=== PATIENT | female | born 2005 | race Caucasian/White ===

== ENCOUNTER 2024-05-21 17:53 | Emergency (ER) | payer BC, SELFPAY ==
[2024-05-21 17:56] VITALS: BP 131/84
[2024-05-21 18:23] LABS: % Basophils 0.2 % (0-2); % Eosinophils 0.7 % (0-6); % Immature Granulocytes 0.2 % (0-0.5); % Lymphocytes 17.4 % (20.5-51.1); % Monocytes 5.8 % (1.7-9.3); % Neutrophils 75.7 % (42.2-75.2); Absolute Eosinophils 0.1 10^3/uL (0-0.7); Absolute Lymphocytes 1.7 10^3/uL (1.2-3.4); Absolute Monocytes 0.6 10^3/uL (0.1-0.6); Absolute Neutrophils 7.6 10^3/uL (1.4-6.5); Hematocrit 37.9 % (37.0-47.0); Hemoglobin 13.3 g/dL (12.0-16.0); Mean Corp Hgb Conc. 35.1 g/dL (33.0-37.0); Mean Corpuscular Hgb 30.9 pg (27.0-31.0); Mean Corpuscular Volume 88.1 fL (81.0-99.0); Mean Platelet Volume 9.4 fL (7.4-10.4); Nucleated Red Blood Cells % 0 %; Platelet Count 316 10^3/uL (130-400); Red Cell Dist. Width 11.9 % (11.5-14.5)
[2024-05-21 18:32] LABS: HCG, Serum Qualitative Screen Negative
[2024-05-21 18:36] LABS: ALT (SGPT) 37 U/L (0-35); AST (SGOT) 31 U/L (14-36); Albumin 4.7 g/dl (3.5-5.0); Alkaline Phosphatase 81 U/L (38-126); Blood Urea Nitrogen 21 mg/dl (7-17); Calcium 9.9 mg/dl (8.4-10.2); Carbon Dioxide 25 mmol/L (22-30); Chloride 106 mmol/L (98-107); Glucose 83 mg/dl (70-99); Potassium 4.4 mmol/L (3.5-5.1); Sodium 141 mmol/L (135-145); Total Bilirubin 0.7 mg/dl (0.2-1.3); Total Protein 7.7 g/dl (6.3-8.2); eGFR > 60.00
[2024-05-21 18:37] LABS: Lipase 60 U/L (23-300)
--- NOTE | 2024-05-21 19:02 | ED.GENMED ---
History of Present Illness
General
Chief Complaint: Abdominal Pain
Source: patient
Exam Limitations: none
Time Seen by Provider: 05/21/24 19:00
Nursing documentation reviewed up to this point in time: agreed with
History of Present Illness
History of Present Illness:
This is a 18-year-old female with past medical history of depression, lactose intolerance who presents emergency department today with concerns of upper abdominal pain. Patient reports that this started around 3 hours prior to arrival to emergency
department. Patient states that this started after she started to eat pizza and started to feel really intense upper abdominal cramping. Patient reports that her mom gave her dose of naproxen and her symptoms started to resolve. Patient states
that she is lactose intolerant and did not take any lactose medications prior to eating pizza. Patient denies any diarrhea. Patient has a nausea vomiting. Patient has never had pain similar to this before.
Review of Systems
Review of Systems
All Other Systems: ROS reviewed and negative except as documented in HPI and ROS
Phy Exam
Physical Exam
Physical Exam:
General: Patient is well appearing and in no acute distress; non-toxic
Skin: Warm and dry, no rashes or lesions
Head: Normocephalic, atraumatic
Eyes: Sclera non-icteric. EOMs intact.
Cardiac: Regular rate and rhythm, no murmurs
Peripheral Vascular: No lower extremity swelling or edema
Pulm: Normal respiratory effort, no wheezes, rales, rhonchi
Abdomen: No abdominal tenderness to palpation, no palpable abdominal masses
Neuro: CN II-XII intact, no focal neurologic deficits.
Psychiatric: Appropriate mood and affect.
Course
Orders/Labs/Results
Orders:
Orders
05/21/24 17:59
Test Result ONCE
05/21/24 18:11
Complete Blood Count/With Diff Urgent
Comprehensive Metabolic Panel Urgent
HCG, Serum Qualitative Screen Urgent
Lipase Urgent
05/21/24 19:10
US Abdomen Complete/Upper Urgent
Comment:
Reason For Exam: right upper quadrant pain
05/21/24 20:07
Urinalysis Reflex To Culture Urgent
Date Specimen was Collected: 05/21/24
Time Specimen was Collected: 19:55
Urine Microscopic Reflex Cult Urgent
Urine Culture Urgent
MATTHEW Source: U
Specimen Description:
Date Specimen was Collected: 05/21/24
Time Specimen was Collected: 19:55
Abnormal Lab Results
05/21/24 05/21/24
18:11 20:07
Absolute Neuts (auto) 7.6 H 10^3/uL
(1.4-6.5)
Neutrophils % 75.7 H %
(42.2-75.2)
Lymphocytes % 17.4 L %
(20.5-51.1)
BUN 21 H mg/dl
(7-17)
ALT 37 H U/L
(0-35)
Ur Occult Blood Reflex 1+ A
(Negative)
Leukocyte Esterase Rfl 1+ A
(Negative)
Urine WBC (Reflex) 11-15 A /HPF
(0-5)
Urine Bacteria (Reflex) Moderate A
(Negative)
Urine Albumin (Reflex) 1+ A
(Neg - Trace)
05/21/24 18:11
05/21/24 18:11
Vital Signs
Initial and Last Documented VS:
Initial Vital Signs
Temp Pulse Resp BP Pulse Ox
98.6 F 104 18 131/84 99
05/21/24 17:56 05/21/24 17:56 05/21/24 17:56 05/21/24 17:56 05/21/24 17:56
Last Documented Vital Signs
Temp Pulse Resp BP Pulse Ox
98.6 F 89 18 113/70 98
05/21/24 17:56 05/21/24 21:48 05/21/24 21:48 05/21/24 21:48 05/21/24 21:48
MDM/Problems Addressed
Differential Diagnosis Includes:
Differentials include cholecystitis, biliary colic, gastroenteritis, gastritis, lactose intolerance
MDM/Problems Addressed:
18-year-old female presents emergency department today with 30 minutes of upper abdominal pain following eating some pizza. Did resolve with naproxen. Does have a history of lactose intolerance. Denies any pelvic pain or dysuria. On physical
exam she is well-appearing in no acute distress she has no abdominal tenderness to palpation. CBC and CMP are unremarkable. Did obtain upper abdominal ultrasound which demonstrates multiple gallstones. Patient did have similar pain in past and
was told she has gallbladder sludge. No evidence of cholecystitis at this time however did discuss with patient that she should likely be evaluated by general surgery and cholecystectomy may be considered in the future. Lactose intolerance may
also have been a component of this episode today. Patient stable for discharge.
Chronic conditions affecting care:
n/a
*Pulse Oximetry
Patient hypoxic: no
*Critical Care Note
Total Time (30-74mins, 75-104mins- exclusive of procedures): Not Applicable
ED Attending Note
-
Portions of this chart may have been created with voice recognition software.� Occasional wrong word or��sound alike� substitutions may have occurred due to the inherent limitations of voice recognition software.
Discharge Plan
Departure
Patient Disposition: Home (Routine Discharge)
Date of Disposition: 05/21/24
Time of Disposition: 21:36
Patient with high blood pressure during this ER visit?: Yes
Condition: Good
Discharge Problem:
Cholelithiasis
Instructions: Gallstones (DC), Abdominal Pain, BLOOD PRESSURE
Referrals:
Gabriele Workman MD [Active] - Call in 1-3 days for appt
Nidhi Levine CRNP [Family Provider] -
Activity Restrictions/Additional Instructions:
Please pay attention to your symptoms and what foods seem to exacerbate them.
PLEASE RETURN EMERGENCY DEPARTMENT SHOULD YOU DEVELOP ANY ACUTE WORSENING OR SYMPTOMS, INTRACTABLE NAUSEA OR VOMITING, CHEST PAIN, SHORTNESS OF BREATH, FEVERS OR CHILLS, OR ANY OTHER SIGNS OR SYMPTOMS WORRISOME TO YOU.
Interventions
Interventions:
*Risk Screen - Suicide Last Done: 05/21/24 17:56
*General Assessment Last Done: 05/21/24 17:56
*Neglect/Abuse Screening Last Done: 05/21/24 17:56
*ED- Fall Risk Assessment Last Done: 05/21/24 21:53
*ED COVID-19 Vaccine History Last Done: 05/21/24 17:56
*Nursing Disposition Last Done: 05/21/24 21:53
TO-Gvxbbm-Sxyppozntr Assessment Last Done: 05/21/24 21:48
Discharge Date and Time
Discharge Date/Time: 05/21/24 21:53
Print Language: PORTUGUESE
[2024-05-21 20:11] VITALS: BP 110/67
[2024-05-21 20:18] LABS: Urine Albumin 1+ (Neg - Trace); Urine Bilirubin Negative (Negative); Urine Character Clear (Clear); Urine Color Yellow; Urine Glucose Negative (Negative); Urine Ketone Negative (Negative); Urine Leukocyte 1+ (Negative); Urine Nitrite Negative (Negative); Urine Occult Blood 1+ (Negative); Urine Specific Gravity 1.025 (<1.030); Urine Urobilinogen Negative (Neg - 1+)
[2024-05-21 21:00] VITALS: BP 73/52
[2024-05-21 21:16] LABS: Urine Bacteria Moderate (Negative); Urine Red Blood Cell 0-2 /HPF (0-2); Urine Squamous Cell >30 /LPF (Few)
[2024-05-21 21:29] VITALS: BP 104/70
[2024-05-21 21:45] VITALS: BP 113/70
[2024-05-21 21:48] VITALS: BP 113/70
== END 2024-05-21 21:53 | disposition home or self-care (01) ==
LOC: EMR 17:53
PROVIDERS: Physician Assistant; EMERGENCY PHYSICIAN Student in an Organized Health Care Education/Training Program; FAMILY PHYSICIAN Nurse Practitioner Pediatrics
DX: K80.20 Calculus of gallbladder without cholecystitis without obstruction (principal); E73.9 Lactose intolerance, unspecified
CPT/HCPCS: 99284; 76700; 80053; 81003; 81015; 83690; 84703; 85025; 87086

== ENCOUNTER 2024-08-08 06:53 | Emergency (ER) | payer BC, SELFPAY ==
[2024-08-08 06:55] VITALS: BP 141/77
--- NOTE | 2024-08-08 07:25 | ED.GENMED ---
History of Present Illness
General
Chief Complaint: Headache
Source: patient
Time Seen by Provider: 08/08/24 07:16
History of Present Illness
History of Present Illness:
The patient is a 18-year-old female who presented to the emergency room with a chief complaint of a severe migraine that began around 2-3 AM this morning and awoke her from sleep. She has a history of migraines but notes that this headache is more
intense and persists despite taking two naproxen tablets, which provided minimal relief. She rates the headache severity as 6/10. She also reports associated nausea and phonophobia but denies any photophobia, weakness, numbness, tingling, or visual
changes.
Phy Exam
Physical Exam
Physical Exam:
- General: Alert and oriented.
- Head and Neck: No meningeal signs; neck movement is not restricted.
- Neurological: Normal cranial nerve function and coordination; no focal neurological deficits. Sensory examination showed normal sensation.
- Cardiovascular: Heart sounds normal.
- Respiratory: Normal breathing sounds.
Nursing notes reviewed and vital signs reviewed.
Course
Orders/Labs/Results
Orders:
Orders
08/08/24 07:23
Diphenhydramine [Benadryl] 25 mg IV NOW STA
Metoclopramide [Reglan] 10 mg IV NOW STA
Test Result ONCE
08/08/24 07:31
Basic Metabolic Panel Urgent
Complete Blood Count/With Diff Urgent
HCG, Serum Qualitative Screen Urgent
Abnormal Lab Results
08/08/24
07:31
RBC 4.17 L 10^6/uL
(4.20-5.40)
Hct 36.2 L %
(37.0-47.0)
Chloride 110 H mmol/L
(98-107)
Glucose 108 H mg/dl
(70-99)
08/08/24 07:31
08/08/24 07:31
Vital Signs
Initial and Last Documented VS:
Initial Vital Signs
Temp Pulse Resp BP Pulse Ox
98.3 F 82 18 141/77 99
08/08/24 06:55 08/08/24 06:55 08/08/24 06:55 08/08/24 06:55 08/08/24 06:55
Last Documented Vital Signs
Temp Pulse Resp BP Pulse Ox
98.3 F 82 18 141/77 99
08/08/24 06:55 08/08/24 06:55 08/08/24 06:55 08/08/24 06:55 08/08/24 06:55
MDM/Problems Addressed
Differential Diagnosis Includes:
The Differential Diagnosis includes, in no particular order and is not limited to:
1. Migraine
2. Tension-type headache
3. Sinus headache
4. Cluster headache
5. Medication-overuse headache
6. Meningitis
7. Intracranial hemorrhage
8. Brain tumor
MDM/Problems Addressed:
1. Administer intravenous medication to alleviate headache symptoms.
2. Based on her neurologic exam being normal, it was determined that a computed tomography scan of the head is not necessary as there are no indicators of stroke or intracranial bleeding.
3. Monitor and treat for potential migraine development.
The patient, a 18-year-old female, presented to the emergency department with a severe migraine that woke her at 2-3 AM. Despite her history of migraines, she reported this episode as more intense and persistent, with minimal relief from two
naproxen tablets. She rated the headache a 6/10, accompanied by nausea and phonophobia, but denied photophobia or neurological deficits. Examination revealed normal neurological status and no need for a CT scan. Intravenous medication was
administered to alleviate the migraine, and she showed no indicators of stroke or intracranial bleeding.
Number and Complexity of Problems Addressed: Evaluated a severe migraine with acute presentation.
Data: Considered and analyzed differential diagnoses, and determined imaging was unnecessary.
Risk: Monitored for migraine resolution and provided intravenous treatment, while considering social factors affecting care.
*Pulse Oximetry
Patient hypoxic: no
Comment: 98
*Critical Care Note
Total Time (30-74mins, 75-104mins- exclusive of procedures): Not Applicable
ED Attending Note
-
Portions of this chart may have been created with voice recognition software.� Occasional wrong word or��sound alike� substitutions may have occurred due to the inherent limitations of voice recognition software.
Discharge Plan
Departure
Patient Disposition: Home (Routine Discharge)
Date of Disposition: 08/08/24
Time of Disposition: 08:36
Patient with high blood pressure during this ER visit?: Yes
Condition: Good
Discharge Problem:
Headache
Instructions: Headache, Adult (DC), BLOOD PRESSURE
Referrals:
Nidhi Levine CRNP [Family Provider]
Activity Restrictions/Additional Instructions:
Please follow-up with your primary care provider.
Interventions
Interventions:
*Risk Screen - Suicide Last Done: 08/08/24 06:55
*General Assessment Last Done: 08/08/24 06:55
*Neglect/Abuse Screening Last Done: 08/08/24 07:36
*ED- Fall Risk Assessment Last Done: 08/08/24 07:36
*ED COVID-19 Vaccine History Last Done: 08/08/24 07:36
ED- Neurological Assessment Last Done: 08/08/24 07:39
Discharge Date and Time
Print Language: LATVIAN
[2024-08-08] MEDS: BENADRYL 25 MG IV (07:33)
[2024-08-08] MEDS: REGLAN 10 MG IV (07:33)
[2024-08-08 07:46] LABS: % Basophils 0.3 % (0-2); % Eosinophils 1.2 % (0-6); % Immature Granulocytes 0.1 % (0-0.5); % Lymphocytes 28.7 % (20.5-51.1); % Monocytes 7.1 % (1.7-9.3); % Neutrophils 62.6 % (42.2-75.2); Absolute Eosinophils 0.1 10^3/uL (0-0.7); Absolute Lymphocytes 2.2 10^3/uL (1.2-3.4); Absolute Monocytes 0.5 10^3/uL (0.1-0.6); Absolute Neutrophils 4.8 10^3/uL (1.4-6.5); Hematocrit 36.2 % (37.0-47.0); Hemoglobin 12.9 g/dL (12.0-16.0); Mean Corp Hgb Conc. 35.6 g/dL (33.0-37.0); Mean Corpuscular Hgb 30.9 pg (27.0-31.0); Mean Corpuscular Volume 86.8 fL (81.0-99.0); Mean Platelet Volume 9.8 fL (7.4-10.4); Nucleated Red Blood Cells % 0 %; Platelet Count 297 10^3/uL (130-400); Red Blood Cell Count 4.17 10^6/uL (4.20-5.40); Red Cell Dist. Width 11.9 % (11.5-14.5); White Blood Cell Count 7.6 10^3/uL (4.8-10.8)
[2024-08-08 07:58] LABS: HCG, Serum Qualitative Screen Negative
[2024-08-08 08:08] LABS: Blood Urea Nitrogen 15 mg/dl (7-17); Calcium 9.3 mg/dl (8.4-10.2); Carbon Dioxide 25 mmol/L (22-30); Chloride 110 mmol/L (98-107); Glucose 108 mg/dl (70-99); Potassium 3.8 mmol/L (3.5-5.1); Sodium 141 mmol/L (135-145); eGFR > 60.00
[2024-08-08 08:47] VITALS: BP 119/67
== END 2024-08-08 08:48 | disposition home or self-care (01) ==
LOC: EMR 06:53
PROVIDERS: EMERGENCY PHYSICIAN Emergency Medicine; FAMILY PHYSICIAN Nurse Practitioner Pediatrics
DX: G43.909 Migraine, unspecified, not intractable, without status migrainosus (principal); R11.0 Nausea; R03.0 Elevated blood-pressure reading, without diagnosis of hypertension
CPT/HCPCS: 99284; 96374; 96375; 80048; 84703; 85025